=== PATIENT | male | born 1985 | race Caucasian/White ===

== ENCOUNTER 2021-02-21 21:44 | Emergency (ER) | payer OTHER ==
[2021-02-21] MEDS ORDERED: Acetaminophen/Codeine 30-300mg Tablet ONE (22:25)
[2021-02-21] MEDS ORDERED: Sulfameth/Trimethoprim DS 800-160mg TAB ONE (22:26)
[2021-02-21] MEDS ORDERED: Boostrix 0.5 ML (Tdap) VIAL ONE (22:26)
[2021-02-21] MEDS ORDERED: Bacitracin 1 PK ONE (22:38)
== END 2021-02-21 22:47 | disposition home or self-care (01) ==
LOC: BURERS 21:44
DX: S61.411A Laceration without foreign body of right hand, initial encounter (principal); S30.811A Abrasion of abdominal wall, initial encounter; S70.311A Abrasion, right thigh, initial encounter; X08.8XXA Exposure to other specified smoke, fire and flames, initial encounter
CPT/HCPCS: 90471; 90715